=== PATIENT | female | born 1980 | race Caucasian/White ===

== ENCOUNTER 2018-11-05 15:30 | Outpatient (RCR) | payer BC | END 2019-01-20 | disposition still patient (30) | LOC: PT | DX: M54.5 Low back pain (principal) ==

== ENCOUNTER 2020-05-01 10:08 | Emergency (ER) | payer BC ==
[~2020-05-01] VITALS: Ht 165.1 cm; Wt 53.6 kg
[2020-05-01 12:28] VITALS: BP 119/74
== END 2020-05-01 12:12 | disposition home or self-care (01) ==
LOC: ED 10:08
DX: M79.672 Pain in left foot (principal); V80.010A Animal-rider injured by fall from or being thrown from horse in noncollision accident, initial encounter; Y92.009 Unspecified place in unspecified non-institutional (private) residence as the place of occurrence of the external cause

== ENCOUNTER 2020-11-05 02:07 | Emergency (ER) | payer BC ==
[2020-11-05 08:24] VITALS: BP 110/73
--- NOTE | 2020-11-08 10:59 | NUR ---
ATTEMPTED TO CALL PT X2 PHONE NUMBER NOT WORKING. CALLED PT [facility] ET REPORTED SMALL LEFT NASAL FRACTURE ET FOLLOW UP WITH PCP NEEDED. NO CONCERNS VOICED.
== END 2020-11-05 09:00 | disposition home or self-care (01) ==
LOC: ED 02:07
DX: S05.42XA Penetrating wound of orbit with or without foreign body, left eye, initial encounter (principal); S01.512A Laceration without foreign body of oral cavity, initial encounter; F10.129 Alcohol abuse with intoxication, unspecified; W10.9XXA Fall (on) (from) unspecified stairs and steps, initial encounter; Y92.838 Other recreation area as the place of occurrence of the external cause

== ENCOUNTER → 2023-07-10 | Outpatient (REF) | payer BC | LOC: LAB 15:10 | DX: B34.9 Viral infection, unspecified (principal) ==